=== PATIENT | female | born 1985 | race Two or more races ===

== ENCOUNTER → 2022-05-13 | Outpatient (CLI) | payer OTHER ==
[2022-05-13 09:55] LABS: Follicle Stimulating Hormone 5.75 IU/L (SEE BELOW); Leuteinizing Hormone 4.3 IU/L
== END | disposition home or self-care (01) ==
LOC: LAB 09:05
PROVIDERS: ATTEND Obstetrics & Gynecology Obstetrics
DX: Z31.41 Encounter for fertility testing (principal)
CPT/HCPCS: 36415; 82670; 83001; 83002; 84144; 84403; 84702